=== PATIENT | female | born 1975 | race African-American/Black ===

== ENCOUNTER 2020-10-27 04:57 | Day surgery (SDC) | payer BC ==
[2020-10-26 13:44] VITALS: BMI 31.6
[2020-10-27] MEDS ORDERED: MIDAZOLAM HCL 2 MG/2 ML SINGLE DOSE VIAL ONE (12:32)
[2020-10-27] MEDS ORDERED: PROPOFOL 20 ML ONE (12:33)
[2020-10-27] MEDS ORDERED: CEFAZOLIN 2 GM in DEXTROSE 5%-WATER - 100 ML IVPB ONE (13:30)
[2020-10-27] MEDS ORDERED: oxyCODONE HCL 5 MG TABLET PO PRN ×2 (14:05→14:18)
[2020-10-27] MEDS ORDERED: ONDANSETRON 4 MG/2 ML VIAL IVPUSH PRN (14:05)
[2020-10-27] MEDS ORDERED: LACTATED RINGERS SOLUTION 1,000 ML IV SCH ×2 (14:15→14:30)
[2020-10-27] MEDS ORDERED: IBUPROFEN 400 MG TABLET (FP) PO PRN (14:18)
[2020-10-27] MEDS ORDERED: ACETAMINOPHEN 325 MG TABLET (FP) PO PRN (14:18)
[2020-10-27] MEDS ORDERED: ACETAMINOPHEN INJECTION 100 ML IVPB ONE (15:08)
[2020-10-27] MEDS ORDERED: HYDROmorphone HCl 2 MG/ML VIAL ONE (15:08)
[2020-10-27] MEDS ORDERED: HYDROmorphone HCl 2 MG/ML VIAL IVPUSH ONE (15:10)
[2020-10-27] MEDS ORDERED: ACETAMINOPHEN 1000 MG/100 ML VIAL (NON FORMULARY) IVPB ONE ×2 (15:10)
[2020-10-27] MEDS ORDERED: oxyCODONE HCL 5 MG TABLET ONE (16:17)
[2020-10-27] MEDS ORDERED: oxyCODONE HCL 5 MG TABLET PO ONE (16:30)
[2020-10-27 18:08] VITALS: BP 127/76; PULSE 68; TEMP 98
== END 2020-10-27 17:45 | disposition home or self-care (01) ==
LOC: JASU-SURG 04:57
PROVIDERS: ATTEND Obstetrics & Gynecology
PROC: 0U5B8ZZ Destruction of Endometrium, Via Natural or Artificial Opening Endoscopic (ICD-10-PCS; principal; 2020-10-27 13:00)
PROC: 0UDB7ZX Extraction of Endometrium, Via Natural or Artificial Opening, Diagnostic (ICD-10-PCS; 2020-10-27 13:00)
DX: N92.0 Excessive and frequent menstruation with regular cycle (principal); D64.9 Anemia, unspecified
CPT/HCPCS: 81025; 88305-TC; 94760; J0131